=== PATIENT | male | born 1975 | race Caucasian/White ===

== ENCOUNTER → 2022-02-05 09:01 | Outpatient (CLI) | payer OTHER, SELFPAY ==
--- NOTE | 2022-02-05 | DI.ECHO.S_ITS ---
[facility] +---------+ : : [address] : : : : [id number] : : : : Phone: [phone]---------+ Echocardiogram Report + + :Name: LADONNA WHALEY Study Date: 02/05/2022 Height: 70 in : :[facility] ReadingLocation: Weight: 200 lb : : Gender: Male BSA: 2.1 m2 : :: 1975 Age: 46 yrs BP: 117/84 mmHg: :Reason For Study: ABNORMAL ELECTROCARDIOGRAM : :Ordering Physician: YESSICA, : :MANOLO Bullard Performed By: Sara Luna : :Referring: MANOLO JUAN : + + Interpretation Summary The ejection fraction is estimated to be 55-60%. There is mild mitral regurgitation. There is mild tricuspid regurgitation. The right ventricular systolic pressure is estimated to be at least 24 mmHg based on an estimated right atrial pressure of 3 mm Hg. Procedure: A two-dimensional transthoracic echocardiogram with color flow and Doppler was performed. The study quality was technically adequate. There is no prior echocardiogram noted for this patient. The patient was in sinus rhythm with heart rates between 60-72 bpm during the exam. Left Ventricle: The left ventricle is normal in size and wall thickness. The ejection fraction is estimated to be 55-60%. Left ventricular wall motion is normal. Right Ventricle: The right ventricle is normal in size and function. Atria: The left atrial size is normal. Right atrial size is normal. There is no Doppler evidence for an interatrial shunt. Mitral Valve: The mitral valve is normal in structure and function. There is mild mitral regurgitation. Aortic Valve: The aortic valve is trileaflet. The aortic valve opens well. There is no aortic valve stenosis. No aortic regurgitation is present. Tricuspid Valve: The tricuspid valve is normal in structure and function. There is mild tricuspid regurgitation. The right ventricular systolic pressure is estimated to be at least 24 mmHg based on an estimated right atrial pressure of 3 mm Hg. Pulmonic Valve: The pulmonic valve leaflets are thin and pliable; valve motion is normal. There is trace pulmonic regurgitation. Great Vessels: The aortic root is normal size. The dimensions of the ascending aorta are normal. The IVC is of normal diameter and collapses greater than 50% with a sniff. This suggests a low right atrial pressure of 3 mm Hg. Pericardium/ Pleura There is no pericardial effusion. There is no pleural effusion. MMode/2D Measurements & Calculations LVIDd: 4.9 cm LVOT diam: 2.0 cm LVIDs: 3.1 cm Ao root diam: 3.4 cm FS: 37.5 % asc Aorta Diam: 3.2 cm EPSS: 0.66 cm Ao Arch Diam (Prox Trans): 3.0 cm IVSd: 1.0 cm LVPWd: 0.76 cm LV bowman. diameter/BSA (cm/m^2): 2.4 LV sys. diameter/BSA (cm/m^2): 1.5 LA A2 area: 21.9 cm2 RA long axis: 5.6 cm LA A4 area: 22.0 cm2 RA area: 15.7 cm2 LA length (vol): 6.0 cm RA vol: 37.7 ml LA vol: 68.3 ml RA : 18.1 ml/m2 LA vol index: 32.7 ml/m2 IVC diam: 1.8 cm RVD1 (basal): 3.8 cm RVD2 (mid): 3.4 cm TAPSE: 2.3 cm Doppler Measurements & Calculations Ao V2 max: 113.6 cm/sec LVOT Max Hunter: 91.9 cm/sec Ao V2 mean: 82.4 cm/sec LV V1 max P.4 mmHg Ao max P.2 mmHg LV V1 VTI: 17.8 cm Ao mean P.0 mmHg OSKAR(I,D): 2.3 cm2 Ao V2 VTI: 24.5 cm OSKAR(V,D): 2.6 cm2 sev ratio: 0.73 OSKAR indexed to BSA (cm^2/m^2): 1.1 MV E max hunter: 80.8 cm/sec TR max hunter: 226.5 cm/sec MV A max hunter: 63.6 cm/sec TR max P.5 mmHg MV E/A: 1.3 PA V2 max: 87.4 cm/sec Med Peak E' Hunter: 7.8 cm/sec PA V2 mean: 56.7 cm/sec E/E' med: 10.3 PA mean P.5 mmHg Lat Peak E' Hunter: 13.1 cm/sec PA pr(Accel): 8.8 mmHg E/E' lat: 6.2 E/e' average: 8.2 MV dec time: 0.26 sec SVLVOT): 57.1 ml Reading Physician:04:29 PM
== END ==
PROVIDERS: PCP Family Medicine; Referring Provider Family Medicine; Visit Provider Family Medicine
DX: R94.31 Abnormal electrocardiogram [ECG] [EKG] (principal); I08.1 Rheumatic disorders of both mitral and tricuspid valves
CPT/HCPCS: 93306